=== PATIENT | male | born 1960 | race Caucasian/White ===

== ENCOUNTER → 2018-03-29 | Outpatient (CLI) | payer OTHER ==
[2018-03-29 18:14] LABS: BASO % 0.5 %; BASO ABS # 0.04 K/uL (0-0.2); EOS % 4.6 %; EOS ABS # 0.39 K/uL (0-0.5); HEMOGLOBIN 15.5 g/dL (14.0-18.0); IG# 0.01 K/uL (0.00-0.02); LYMPH % 44.2 %; LYMPH ABS # 3.75 K/uL (1.2-3.4); MEAN CELL VOLUME 88.5 fL (80-100); MEAN CORPUSCULAR HEMOGLOBIN 31.2 pg (25-34); MEAN CORPUSCULAR HGB CONC 35.2 g/dl (32-36); MEAN PLATELET VOLUME 9.9 fL (7.4-10.4); MONO % 6.6 %; MONO ABS # 0.56 K/uL (0.11-0.59); NEUT ABS # 3.73 K/uL (1.4-6.5); PLATELET COUNT 283 K/uL (130-400); RED CELL DISTRIBUTION WIDTH CV 12.8 % (11.5-14.5); RED CELL DISTRIBUTION WIDTH SD 40.9 fL (36.4-46.3); WHITE BLOOD COUNT 8.48 K/uL (4.8-10.8)
--- NOTE | 2018-03-29 18:25 | DIAGNOSTIC IMAGING REPORT ---
L-SPINE MIN 4 VIEWS ROUTINE CLINICAL HISTORY: 58 years-old Male presenting with R70.0 low back pain, elevated sedimentation rate. TECHNIQUE: Frontal, bilateral oblique, lateral, coned in lateral views of lumbar spine were obtained. COMPARISON: None. FINDINGS: No significant scoliosis. Slight straightening of normal lumbar lordosis. Vertebral bodies maintain normal height and alignment. Intervertebral disc height loss may be present to a mild degree at L5-S1. Prominent anterior osteophytosis at L3-4 and to a lesser extent at several additional levels. No compression deformity or subluxation. Osseous neural foraminal narrowing may be present at L5-S1. No advanced facet arthropathy. Moderate stool burden in the right colon. Sacroiliac joints congruent and symmetric. 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 No radiographic evidence of acute osseous injury. Osseous neural foraminal narrowing may be present at L5-S1. Electronically signed by: Omar Delgado M.D. 03/29/2018 6:24 PM Dictated Date/Time: 03/29/2018 6:22 PM
[2018-03-29 18:44] LABS: ALBUMIN 3.8 gm/dl (3.4-5.0); ALKALINE PHOSPHATASE 85 U/L (45-117); ALT/SGPT 30 U/L (12-78); AST/SGOT 14 U/L (15-37); CREATININE 0.88 mg/dl (0.60-1.40); TOTAL PROTEIN 8.3 gm/dl (6.4-8.2)
== END | disposition home or self-care (01) ==
LOC: C.RAD 17:31
PROVIDERS: ATTEND Internal Medicine Rheumatology
DX: R70.0 Elevated erythrocyte sedimentation rate (principal); M54.30 Sciatica, unspecified side; M46.1 Sacroiliitis, not elsewhere classified